=== PATIENT | male | born 1995 | race Caucasian/White ===

== ENCOUNTER 2018-06-06 14:32 | Emergency (ER) | payer BC, OTHER ==
[2018-06-06 14:45] VITALS: BP 116/78; PULSE 104; RESP 20; TEMP 97.8
[2018-06-06] MEDS ORDERED: SODIUM CHLORIDE 0.9% 1,000 ML IV STA (14:57)
[2018-06-06 15:01] LABS: Glucose,Whole Blood 92 mg/dL (75-99)
[2018-06-06 15:13] LABS: Basophils % (A) 1 %; Eosinophils # (A) 0.1 k/uL (0-0.7); Eosinophils % (A) 2 %; HCT 44.6 % (39.0-53.0); HGB 15.7 gm/dL (13.0-17.5); Lymphocytes % (A) 37 %; MCH 32.9 pg (25.0-35.0); MCHC 35.1 g/dL (31.0-37.0); MCV 93.7 fL (80.0-100.0); Mean Platelet Volume 6.6; Monocytes # (A) 0.3 k/uL (0-1.0); Monocytes % (A) 6 %; Neutrophils # (A) 2.9 k/uL (1.3-7.7); Neutrophils % (A) 53 %; Platelet Count 249 k/uL (150-450); RBC 4.77 m/uL (4.30-5.90); RDW 11.6 % (11.5-15.5); WBC 5.4 k/uL (3.8-10.6)
[2018-06-06 15:22] LABS: Partial Thromboplastin Time 25.4 sec (22.0-30.0); Prothrombin Time 10.2 sec (9.0-12.0)
[2018-06-06 15:23] LABS: ALT 28 U/L (21-72); AST 27 U/L (17-59); Albumin 4.4 g/dL (3.5-5.0); Alcohol <10 mg/dL; Alkaline Phosphatase 59 U/L (38-126); Amylase 54 U/L (30-110); Anion Gap 12 mmol/L; Blood Urea Nitrogen 21 mg/dL (9-20); Calcium 9.3 mg/dL (8.4-10.2); Carbon Dioxide 29 mmol/L (22-30); Chloride 103 mmol/L (98-107); Glucose 65 mg/dL (74-99); Lipase 27 U/L (23-300); Potassium 3.9 mmol/L (3.5-5.1); Sodium 144 mmol/L (137-145); Total Bilirubin 0.8 mg/dL (0.2-1.3); Total Protein 6.8 g/dL (6.3-8.2)
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
[2018-06-06 15:35] LABS: Creatine Kinase 178 U/L (55-170)
[2018-06-06 15:47] LABS: Creatine Kinase MB 1.6 ng/mL (0.0-2.4); Troponin I <0.012 ng/mL (0.000-0.034)
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
[2018-06-06] MEDS ORDERED: MORPHINE SULFATE 2 MG/ML SYRINGE IVP STA (16:06)
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
== END 2018-06-06 17:19 | disposition other institution (70) ==
LOC: EC 14:32
DX: S39.91XA Unspecified injury of abdomen, initial encounter (principal); R41.82 Altered mental status, unspecified; R51 Headache; M54.2 Cervicalgia; M54.5 Low back pain; R07.9 Chest pain, unspecified; F17.200 Nicotine dependence, unspecified, uncomplicated; Z79.899 Other long term (current) drug therapy; Z88.0 Allergy status to penicillin; V48.5XXA Car driver injured in noncollision transport accident in traffic accident, initial encounter; Y92.410 Unspecified street and highway as the place of occurrence of the external cause
CPT/HCPCS: 99291; 96374; 36415; 93005; 86900; 86901; 80053; 82150; 82550; 82553; 83605; 83690; 84484; 85025; 85610; 85730; 86850; 80320; 72170; 71045; 72125; 70450; 71260; 74177; L0120; J2270; Q9967

== ENCOUNTER 2018-07-27 01:01 | Emergency (ER) | payer BC ==
[2018-07-27] MEDS ORDERED: KETOROLAC 30 MG/ML 1 ML VIAL IVP STA (01:48)
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
[2018-07-27 02:25] LABS: Appearance,Urine Clear (Clear); Bilirubin,Urine Negative (Negative); Blood,Urine Negative (Negative); Color,Urine Yellow; Glucose,Urine (UA) Negative (Negative); Ketones,Urine Negative (Negative); Leukocyte Esterase,Urine Negative (Negative); Nitrite,Urine Negative (Negative); PH, Urine 5.5 (5.0-8.0); Protein,Urine Trace (Negative)
[2018-07-27 02:33] LABS: ALT 29 U/L (21-72); AST 23 U/L (17-59); Albumin 4.1 g/dL (3.5-5.0); Alkaline Phosphatase 69 U/L (38-126); Amylase 51 U/L (30-110); Anion Gap 7 mmol/L; Blood Urea Nitrogen 21 mg/dL (9-20); Carbon Dioxide 28 mmol/L (22-30); Chloride 103 mmol/L (98-107); Glucose 88 mg/dL (74-99); Lipase 24 U/L (23-300); Potassium 3.9 mmol/L (3.5-5.1); Sodium 138 mmol/L (137-145); Total Bilirubin 0.7 mg/dL (0.2-1.3); Total Protein 6.5 g/dL (6.3-8.2)
[2018-07-27 02:36] LABS: Basophils % (A) 1 %; Eosinophils # (A) 0.1 k/uL (0-0.7); Eosinophils % (A) 2 %; HCT 43.6 % (39.0-53.0); HGB 14.3 gm/dL (13.0-17.5); Lymphocytes # (A) 2.6 k/uL (1.0-4.8); Lymphocytes % (A) 51 %; MCH 31.6 pg (25.0-35.0); MCHC 32.8 g/dL (31.0-37.0); MCV 96.2 fL (80.0-100.0); Mean Platelet Volume 6.5; Monocytes # (A) 0.3 k/uL (0-1.0); Monocytes % (A) 6 %; Neutrophils # (A) 1.9 k/uL (1.3-7.7); Neutrophils % (A) 38 %; Platelet Count 254 k/uL (150-450); RBC 4.53 m/uL (4.30-5.90); RDW 12.3 % (11.5-15.5)
--- NOTE | 2018-07-27 02:37 | XR ---
EXAMINATION TYPE: XR KUB DATE OF EXAM: 07/27/2018 COMPARISON: 12/09/2014 HISTORY: Abdominal pain TECHNIQUE: 2 upright views FINDINGS: Bowel gas pattern is normal. There is no sign of intestinal obstruction or pneumoperitoneum . Fecal pattern is normal. There is faint 2 mm calcification over the right kidney. Lung bases are cl ear. IMPRESSION: Possible right renal calculus. Nonacute abdomen.
[2018-07-27] MEDS ORDERED: MORPHINE SULFATE 4 MG/ML SYRINGE IV STA (02:47)
--- NOTE | 2018-07-27 03:18 | CT ---
EXAMINATION TYPE: CT abdomen pelvis wo con DATE OF EXAM: 07/27/2018 COMPARISON: 06/06/2018 HISTORY: pt. c/o right flank pain CT DLP: 503 mGycm Automated exposure control for dose reduction was used. TECHNIQUE: Helical acquisition of images was performed from the lung bases through the pelvis. FINDINGS: Lung bases are clear. There is no pleural effusion. Heart size is normal. Liver and spleen appear normal. Bile ducts are not dilated. There is no pancreatic mass. There are sm all calcified splenic granulomata. Gallbladder appears normal. There are multiple bilateral calcifications at the renal papilla. There is no hydronephrosis. Ureters are not dilated. There is no retroperitoneal adenopathy. There is no ascites. Bladder distends jaison hly. There is no pelvic mass. There is minimal prostatic calcification. Appendix is not definitely se en. There is no sign of appendicitis. There is mild retained fecal material in the large bowel. I see no bony destructive process. IMPRESSION: RENAL CALCIFICATION THAT COULD RELATE TO MEDULLARY SPONGE KIDNEY. NO RENAL OBSTRUCTION. NO SIGN OF AP PENDICITIS. MILD CONSTIPATION. OLD GRANULOMATOUS DISEASE. NO ADVERSE CHANGE COMPARED TO OLD EXAM.
[2018-07-27 07:23] VITALS: BP 115/91; PULSE 64; RESP 17; TEMP 98.2
== END 2018-07-27 04:17 | disposition home or self-care (01) ==
LOC: EC 01:01
DX: R10.9 Unspecified abdominal pain (principal); F17.200 Nicotine dependence, unspecified, uncomplicated; Z88.0 Allergy status to penicillin
CPT/HCPCS: 36415; 80053; 82150; 83690; 85025; 81003; 74018; 74176; 99284; 96374; 96375; J2270; J1885